=== PATIENT | female | born 1995 | race Two or more races ===

== ENCOUNTER 2020-07-18 22:21 | Emergency (ER) | payer SELFPAY ==
[2020-07-18 22:34] VITALS: BP 118/67; PULSE 80; RESP 18; TEMP 37.1; O2SAT 99; BMI 20.9
--- NOTE | 2020-07-19 00:19 | ED.NAVMDI ---
HPI - Nausea/Vomiting/Diarrhea General Chief complaint: OB Stated complaint: vomiting, abdominal pain, Time Seen by Provider: 07/18/20 23:25 Source: patient Mode of arrival: ambulatory Limitations: no limitations History of Present Illness HPI Narrative: Patient comes to the emergency room complaining of nausea and vomiting. Patient states 10 days ago she found out she was , had 2 positive home tests. Patient also complaining of chronic lower back pain, states it is unrelated to her . It was written on the patient's triage note that the patient complained of rectal pain, patient states she does not have rectal pain at all. Patient denies vaginal fluid or leakage, no abdominal cramping. No dysuria. Patient is a . Patient states her last menstrual period was the week of May. MD elicited complaint: nausea and vomiting Related Data Previous Rx's Medication Instructions Recorded metoclopramide HCl 5 mg PO Q6H PRN #20 tab 07/19/20 nitrofurantoin monohyd/m-cryst 100 mg PO Q12H 7 Days #14 cap 07/19/20 [Macrobid] Allergies Allergy/AdvReac Type Severity Reaction Status Date / Time bupropion [From WELLBUTRIN] Allergy Unknown RASH Unverified 02/07/20 19:39 Review of Systems Review of Systems: Constitutional : No Weight loss, No Fever, No Chills, No Night Sweats, No Fatigue, No Malaise ENT/Mouth : No Hearing loss, No Ear Pain, No Nasal Congestion, No Sinus Pain, No Hoarseness, No sore throat, No Rhinorrhea, No Swallowing Difficulty Eyes: No Eye Pain, No Swelling, No Redness, No Foreign Body, No Discharge, No Vision Changes Cardiovascular : No Chest Pain, No SOB, No Dyspnea on Exertion, No Orthopnea, No Edema, No Palpitations Respiratory : No Cough, No Sputum, No Wheezing, No Smoke Exposure, No Dyspnea Gastrointestinal : Complaining of nausea vomiting, No Diarrhea, No Constipation, No abdominal Pain, No Hematochezia, No Melena Genitourinary : no irregular bleeding, No Dysuria, No Urinary Frequency, No Hematuria, No Urinary Incontinence, No Urgency, No Flank Pain, No Urinary Flow Changes, No Hesitancy Musculoskeletal : Complaining of chronic lumbar pain, No Myalgias, No Joint Swelling Skin : No Skin Lesions, No rash Neuro : No Weakness, No Numbness, No Paresthesias, No Loss of Consciousness, No Dizziness, No Headache Psych : No Anxiety/Panic, No Depression, No SI/HI/AH/VH, No Social Issues, Heme/Lymph: No Bruising, No Bleeding,No Lymphadenopathy Endocrine : No Polyuria, No Polydipsia, No Temperature Intolerance [facility] Social History Social History Advance Directives: No Physical Exam Vital Signs: Vital Signs: Last Vital Signs Temp 97.8 F 07/19/20 00:55 Pulse 65 07/19/20 00:55 Resp 18 07/19/20 00:55 BP 95/50 L 07/19/20 00:55 Pulse Ox 100 07/19/20 00:55 Body Mass Index 20.9 Appearance: Alert. Oriented X3. No acute distress. Eyes: Pupils equal, round and reactive to light. ENT: Pharynx normal. Neck: Normal inspection. Neck supple. No lymph nodes noted. No crepitus CVS: Normal heart rate and rhythm. Pulses normal. Normal S1 and S2 Respiratory: No respiratory distress. Breath sounds normal. No Wheezing. No rales Abdomen: Soft and nontender. No rigidity. No distention. good BS x4 Skin: Skin warm and dry. Normal skin color. Normal skin turgor. Extremities: No lower extremity edema. No lower extremity edema. No Lacerations. No Rash Neuro: Oriented X 3. No motor deficit. No sensory deficit. Moving all extermities. No slurred speech. Course Course Course Narrative: Patient feeling better, has not vomited since she has been in the emergency room. Patient states she is already taking vitamins. MDM - Nausea/Vomiting/Diarrhea Lab Data Result diagrams: 07/19/20 00:47 07/19/20 00:47 Labs: Lab Results 07/19/20 07/19/20 07/19/20 Range/Units 00:47 00:47 00:47 WBC 9.9 (4.8-10.8) X10*3/uL RBC 4.14 L (4.20-5.50) X10*6/uL Hgb 12.7 (12.0-16.0) g/dl Hct 38.2 (37-47) % MCV 92.3 (80-98) fL MCH 30.7 (27.0-33.0) pg MCHC 33.2 (31.0-35.0) g/dl RDW 12.2 (11.0-16.0) % Plt Count 260 (160-400) X10*3/uL MPV 10.5 (9.4-12.3) fL Immature Gran % (Auto) 0.3 (0.0-0.4) % Neut % (Auto) 66.9 (45-73) % Lymph % (Auto) 24.3 (20-40) % Kingfisher % (Auto) 5.7 (2-11) % Eos % (Auto) 2.5 (0-4) % Baso % (Auto) 0.3 (0-2) % Lymph # (Auto) 2.4 (1.2-4.9) X10*3/uL Kingfisher # (Auto) 0.6 (0.1-1.2) X10*3/uL Eos # (Auto) 0.3 (0.0-0.4) X10*3/uL Baso # (Auto) 0.0 (0.0-0.2) X10*3/uL Abs Immat Gran (auto) 0.03 (0.00-0.03) X10*3/uL Absolute Neuts (auto) 6.6 (2.0-8.3) X10*3/uL Absolute Nucleated RBC 0.000 (0.0-0.012) X10*3/uL Nucleated RBC % (auto) 0.0 (0.0-0.2) /100WBC Sodium 137 (135-145) mmol/L Potassium 4.0 (3.3-5.1) mmol/L Chloride 104 (96-108) mmol/L Carbon Dioxide 27 (22-29) mmol/L Anion Gap 10 L (12-20) BUN 12 (9-16) mg/dL Creatinine 0.65 (0.5-1.4) mg/dL Estim Creat Clear Calc 108.5 Estimated GFR > 60 Random Glucose 87 (60-115) mg/dL Calcium 9.3 (8.4-10.2) mg/dL Total Bilirubin 0.2 (0.0-1.0) mg/dL Direct Bilirubin < 0.2 (0.0-0.5) mg/dL AST 12 (5-31) U/L ALT 10 (0-31) U/L Alkaline Phosphatase 67 (39-117) U/L Total Protein 6.7 (6.5-8.0) g/dL Albumin 4.2 (3.5-5.0) g/dL Beta HCG, Quant 293697 mIU/mL Urine Color Urine Appearance Urine pH (5.0-8.0) Ur Specific Bradford (1.005-1.025) Urine Protein (NEG-TRACE) MG/DL Urine Glucose (UA) (NEG) MG/DL Urine Ketones (NEG) MG/DL Urine Blood (NEG) Urine Nitrite (NEG) Ur Leukocyte Esterase (NEG) Urine RBC (0) /HPF Urine WBC (0-4) /HPF Urine WBC Clumps Ur Squamous Epith Cells /LPF Calcium Oxalate Crystal /LPF Urine Bacteria /LPF Urine Mucus /LPF Urine Test (NEGATIVE) Blood Type O Positive 07/19/20 07/19/20 Range/Units 00:47 00:47 WBC (4.8-10.8) X10*3/uL RBC (4.20-5.50) X10*6/uL Hgb (12.0-16.0) g/dl Hct (37-47) % MCV (80-98) fL MCH (27.0-33.0) pg MCHC (31.0-35.0) g/dl RDW (11.0-16.0) % Plt Count (160-400) X10*3/uL MPV (9.4-12.3) fL Immature Gran % (Auto) (0.0-0.4) % Neut % (Auto) (45-73) % Lymph % (Auto) (20-40) % Kingfisher % (Auto) (2-11) % Eos % (Auto) (0-4) % Baso % (Auto) (0-2) % Lymph # (Auto) (1.2-4.9) X10*3/uL Kingfisher # (Auto) (0.1-1.2) X10*3/uL Eos # (Auto) (0.0-0.4) X10*3/uL Baso # (Auto) (0.0-0.2) X10*3/uL Abs Immat Gran (auto) (0.00-0.03) X10*3/uL Absolute Neuts (auto) (2.0-8.3) X10*3/uL Absolute Nucleated RBC (0.0-0.012) X10*3/uL Nucleated RBC % (auto) (0.0-0.2) /100WBC Sodium (135-145) mmol/L Potassium (3.3-5.1) mmol/L Chloride (96-108) mmol/L Carbon Dioxide (22-29) mmol/L Anion Gap (12-20) BUN (9-16) mg/dL Creatinine (0.5-1.4) mg/dL Estim Creat Clear Calc Estimated GFR Random Glucose (60-115) mg/dL Calcium (8.4-10.2) mg/dL Total Bilirubin (0.0-1.0) mg/dL Direct Bilirubin (0.0-0.5) mg/dL AST (5-31) U/L ALT (0-31) U/L Alkaline Phosphatase (39-117) U/L Total Protein (6.5-8.0) g/dL Albumin (3.5-5.0) g/dL Beta HCG, Quant mIU/mL Urine Color YELLOW Urine Appearance CLEAR Urine pH 6.0 (5.0-8.0) Ur Specific Bradford 1.025 (1.005-1.025) Urine Protein NEG (NEG-TRACE) MG/DL Urine Glucose (UA) NEG (NEG) MG/DL Urine Ketones NEG (NEG) MG/DL Urine Blood TRACE (NEG) Urine Nitrite POS H (NEG) Ur Leukocyte Esterase NEG (NEG) Urine RBC 0-2 (0) /HPF Urine WBC 0-2 (0-4) /HPF Urine WBC Clumps NOTED Ur Squamous Epith Cells 1+ /LPF Calcium Oxalate Crystal 1+ /LPF Urine Bacteria 2+ /LPF Urine Mucus 2+ /LPF Urine Test POSITIVE H (NEGATIVE) Blood Type Discharge Plan Discharge Clinical Impression: Nausea and vomiting during UTI (urinary tract infection) Qualifiers: Urinary tract infection type: site unspecified Hematuria presence: without hematuria Qualified Code(s): N39.0 - Urinary tract infection, site not specified Patient Disposition: Home, Self-Care Instructions: Acute Nausea and Vomiting (ED), Urinary Tract Infection in (ED) Additional Instructions: Please follow-up with your primary care physician tomorrow. If you have any worsening or new symptoms, please return to the emergency room or call 911. Please follow-up with your OBGYN, if needed you can call the OBGYN group in [place]. Prescriptions: New nitrofurantoin monohyd/m-cryst [Macrobid] 100 mg capsule 100 mg PO Q12H 7 Days Qty: 14 RF: 0 metoclopramide HCl 5 mg tablet 5 mg PO Q6H PRN (Reason: nausea and vomiting) Qty: 20 RF: 0 Referrals: Osbaldo Dick MD [Physician] - 2 days
[2020-07-19 00:55] VITALS: BP 95/50; PULSE 65; RESP 18; TEMP 36.6; O2SAT 100
[2020-07-19 00:57] LABS: MANUAL DIFF FLAG NO
[2020-07-19 00:58] LABS: Basophils Percent Auto 0.3 % (0-2); Eosinophils Absolute Auto 0.3 X10*3/uL (0.0-0.4); Eosinophils Percent Auto 2.5 % (0-4); Hematocrit 38.2 % (37-47); Hemoglobin 12.7 g/dl (12.0-16.0); Imm Gran Abs Auto 0.03 X10*3/uL (0.00-0.03); Imm Gran Pct Auto 0.3 % (0.0-0.4); Lymphocytes Absolute Auto 2.4 X10*3/uL (1.2-4.9); Lymphocytes Percent Auto 24.3 % (20-40); Mean Corpuscular HGB Conc 33.2 g/dl (31.0-35.0); Mean Corpuscular Hemoglobin 30.7 pg (27.0-33.0); Mean Corpuscular Volume 92.3 fL (80-98); Mean Platelet Volume 10.5 fL (9.4-12.3); Monocytes Absolute Auto 0.6 X10*3/uL (0.1-1.2); Monocytes Percent Auto 5.7 % (2-11); Neutrophils Absolute Auto 6.6 X10*3/uL (2.0-8.3); Neutrophils Percent Auto 66.9 % (45-73); Platelet Count 260 X10*3/uL (160-400); Red Blood Count 4.14 X10*6/uL (4.20-5.50); Red Cell Distribution Width 12.2 % (11.0-16.0); White Blood Count 9.9 X10*3/uL (4.8-10.8)
[2020-07-19] MEDS: Metoclopramide HCl 10 MG/2 ML VIAL IVPUSH (00:58)
[2020-07-19] MEDS: 0.9 % Sodium Chloride 1,000 ML 999 ML IVCONT (00:58)
[2020-07-19 01:11] LABS: Glucose Urine UA NEG (NEG); Leukocyte Esterase Urine NEG (NEG); Nitrite Urine POS (NEG); Specific Gravity - Urine 1.025 (1.005-1.025); UACC Culture Trigger YES; Urine Blood TRACE (NEG); Urine Ketones NEG (NEG); Urine Protein NEG (NEG-TRACE)
[2020-07-19 01:12] LABS: Appearance Urine CLEAR; Color Urine YELLOW
[2020-07-19 01:18] LABS: UPreg QC Valid YES; Urine Pregnancy POSITIVE (NEGATIVE)
[2020-07-19 01:20] LABS: Alanine Aminotransferase 10 U/L (0-31); Albumin Level 4.2 g/dL (3.5-5.0); Alkaline Phosphatase 67 U/L (39-117); Anion Gap 10 (12-20); Aspartate Amino Transferase 12 U/L (5-31); Bilirubin Direct < 0.2 mg/dL (0.0-0.5); Bilirubin Total 0.2 mg/dL (0.0-1.0); Blood Urea Nitrogen 12 mg/dL (9-16); Calcium 9.3 mg/dL (8.4-10.2); Carbon Dioxide 27 mmol/L (22-29); Chloride 104 mmol/L (96-108); Creatinine Clr Calc Pharmacy 108.5; Estimated Glomerular Filt Rate > 60; Glucose Random 87 mg/dL (60-115); Sodium 137 mmol/L (135-145); Total Protein 6.7 g/dL (6.5-8.0)
[2020-07-19 01:45] LABS: Bacteria Urine 2+ /LPF; Calcium Oxalate Crystals Urine 1+ /LPF; Mucus Urine 2+ /LPF; RBC Urine 0-2 /HPF (0); Squamous Epithelial Cell Urine 1+ /LPF; WBC Clumps Urine NOTED; WBC Urine 0-2 /HPF (0-4)
[2020-07-19] MEDS: Nitrofurantoin Monohyd/M-Cryst 100 MG CAPSULE PO (02:02)
== END 2020-07-19 02:14 | disposition home or self-care (01) ==
PROVIDERS: Student in an Organized Health Care Education/Training Program; Emergency Provider Emergency Medicine
DX: O21.9 Vomiting of pregnancy, unspecified (principal); O23.41 Unspecified infection of urinary tract in pregnancy, first trimester; Z3A.00 Weeks of gestation of pregnancy not specified
CPT/HCPCS: 36415; 80048; 80076; 81001; 81003; 81025; 84702; 85025; 86900; 86901; 87086; 96361; 96374; 99284; J2765

== ENCOUNTER 2020-09-07 20:21 | Emergency (ER) | payer OTHER, SELFPAY ==
[2020-09-07 20:26] VITALS: BP 122/65; PULSE 98; RESP 18; TEMP 37.1; O2SAT 100; BMI 21.9
[2020-09-07 21:44] LABS: COVID-19 Test Negative (Negative)
--- NOTE | 2020-09-07 22:09 | PC.NURSE ---
DR ARREDONDO IN TO EVAL PATIENT. PT STATES TUESDAY SYMPTOMS STARTED. C/O NASAL CONGESTION, HEADACHE, EAR PAIN. SORE THROAT GONE. PT TALKING IN FULL SENTES. RESP UNLABORED.
--- NOTE | 2020-09-07 22:16 | ED.GENADULT ---
HPI - General Adult General Chief complaint: General Medical Stated complaint: sob Time Seen by Provider: 09/07/20 22:05 Source: patient Mode of arrival: ambulatory Limitations: no limitations History of Present Illness HPI narrative: Patient comes emergency room complaining of sinus pressure. Patient states she has been having worsening congestion for the last 4 days, patient is known to be 15 weeks . Two days ago she got tested for COVID-19, tested negative. Otherwise patient feeling well. Patient denies coughing, no vomiting or diarrhea. No shortness of breath. Related Data Previous Rx's Medication Instructions Recorded metoclopramide HCl 5 mg PO Q6H PRN #20 tab 07/19/20 nitrofurantoin monohyd/m-cryst 100 mg PO Q12H 7 Days #14 cap 07/19/20 [Macrobid] fluticasone propionate [Flonase 1 spray INTRANASAL BID #16 g 09/07/20 Allergy Relief] Allergies Allergy/AdvReac Type Severity Reaction Status Date / Time bupropion [From WELLBUTRIN] Allergy Unknown RASH Unverified 02/07/20 19:39 Review of Systems Review of Systems: Constitutional : No Weight loss, No Fever, No Chills, No Night Sweats, No Fatigue, No Malaise ENT/Mouth : No Hearing loss, No Ear Pain, complaining of bilateral Nasal Congestion, mild ethmoid Sinus Pain, No Hoarseness, No sore throat, No Rhinorrhea, No Swallowing Difficulty Eyes: No Eye Pain, No Swelling, No Redness, No Foreign Body, No Discharge, No Vision Changes Cardiovascular : No Chest Pain, No SOB, No Dyspnea on Exertion, No Orthopnea, No Edema, No Palpitations Respiratory : No Cough, No Sputum, No Wheezing, No Smoke Exposure, No Dyspnea Gastrointestinal : No Nausea, No Vomiting, No Diarrhea, No Constipation, No abdominal Pain, No Hematochezia, No Melena Genitourinary : no irregular bleeding, No Dysuria, No Urinary Frequency, No Hematuria, No Urinary Incontinence, No Urgency, No Flank Pain, No Urinary Flow Changes, No Hesitancy Musculoskeletal : No joint pain, No Myalgias, No Joint Swelling Skin : No Skin Lesions, No rash Neuro : No Weakness, No Numbness, No Paresthesias, No Loss of Consciousness, No Dizziness, No Headache Psych : No Anxiety/Panic, No Depression, No SI/HI/AH/VH, No Social Issues, Heme/Lymph: No Bruising, No Bleeding,No Lymphadenopathy Endocrine : No Polyuria, No Polydipsia, No Temperature Intolerance [facility] Social History Social History Advance Directives: No Advance Directives Information Provided: No Physical Exam Vital Signs: Vital Signs: Last Vital Signs Temp 98.8 F 09/07/20 20:26 Pulse 98 09/07/20 20:26 Resp 18 09/07/20 20:26 BP 122/65 09/07/20 20:26 Pulse Ox 100 09/07/20 20:26 Body Mass Index 21.9 Appearance: Alert. Oriented X3. No acute distress. Eyes: Pupils equal, round and reactive to light. ENT: Pharynx normal. Pain to palpation over the ethmoid sinus Neck: Normal inspection. Neck supple. No lymph nodes noted. No crepitus CVS: Normal heart rate and rhythm. Pulses normal. Normal S1 and S2 Respiratory: No respiratory distress. Breath sounds normal. No Wheezing. No rales Abdomen: Soft and nontender. No rigidity. No distention. good BS x4, gravid uterus, heart rate 140 Skin: Skin warm and dry. Normal skin color. Normal skin turgor. Extremities: No lower extremity edema. No lower extremity edema. No Lacerations. No Rash Neuro: Oriented X 3. No motor deficit. No sensory deficit. Moving all extermities. No slurred speech. Course Course Course Narrative: I discussed with the patient that we are very limited on medication that we can give her for her symptoms. At this time antibiotic is not indicated. Patient will try Flonase Medical Decision Making Lab Data Labs: Lab Results 09/07/20 Range/Units 21:24 COVID-19 ([facility]) Negative (Negative) COVID-19 Clin Com See Note Discharge Plan Discharge Clinical Impression: Sinusitis Qualifiers: Sinusitis location: ethmoidal Chronicity: acute Recurrence: non-recurrent Qualified Code(s): J01.20 - Acute ethmoidal sinusitis, unspecified Patient Disposition: Home, Self-Care Instructions: Sinusitis (ED) Additional Instructions: Please follow-up with your primary care physician tomorrow. If you have any worsening or new symptoms, please return to the emergency room or call 911 Prescriptions: New fluticasone propionate [Flonase Allergy Relief] 50 mcg/actuation spray,suspension 1 spray intranasal BID Qty: 16 RF: 0 No Action nitrofurantoin monohyd/m-cryst [Macrobid] 100 mg capsule 100 mg PO Q12H 7 Days Qty: 14 RF: 0 metoclopramide HCl 5 mg tablet 5 mg PO Q6H PRN (Reason: nausea and vomiting) Qty: 20 RF: 0
== END 2020-09-07 22:41 | disposition home or self-care (01) ==
PROVIDERS: Emergency Provider Emergency Medicine
DX: O26.92 Pregnancy related conditions, unspecified, second trimester (principal); J01.20 Acute ethmoidal sinusitis, unspecified; R06.02 Shortness of breath; Z3A.15 15 weeks gestation of pregnancy; Z79.899 Other long term (current) drug therapy; Z20.822 Contact with and (suspected) exposure to COVID-19
CPT/HCPCS: 36415; 87635; 99283

== ENCOUNTER 2021-01-07 10:23 | Emergency (ER) | payer OTHER, SELFPAY ==
[2021-01-07 10:35] VITALS: BP 108/71; PULSE 80; RESP 19; TEMP 36.6; O2SAT 98; BMI 25.8
--- NOTE | 2021-01-07 10:48 | ED.FALL ---
HPI - Fall General Chief Complaint: Fall Stated Complaint: fall Time Seen by Provider: 01/07/21 10:31 Source: patient and family ( at bedside ) Mode of arrival: ambulatory Limitations: no limitations History of Present Illness HPI Narrative: 25-year-old female who is currently 32 [facility] after she had a mechanical fall where she tripped over some ropes that were at the bottom of the stairs where she resides due to the stairs were being remodeled. She reports that she flew over the ropes approximately 3 steps and fell into the cement sidewalk near the parking lot. She reports that she landed on her bilateral knees and abdomen. She reports that she is feeling movement. She is complaining of only bilateral knee, left great toe and mid to right lower back pain otherwise denies any other pain. Denies head injury or loss of consciousness. Denies being on any blood thinners. MD complaint: fall Onset (ago): minute(s) (Prior to arrival) Fall from: standing Fall witnessed: no Place fall occurred: home Loss of consciousness: none Prolonged down time: no Symptoms prior to fall: none Context: tripped/slipped Location of injury: abdomen Location of injury - extremities: bilateral: knee Severity: moderate Quality: aching Associated symptoms (after fall): other (Patient only reports pain to bilateral knees, left great toe pain and mid to right lower back pain) Related Data Previous Rx's Medication Instructions Recorded metoclopramide HCl 5 mg tablet 5 mg PO Q6H PRN #20 tab 07/19/20 nitrofurantoin 100 mg PO Q12H 7 Days #14 cap 07/19/20 monohydrate/macrocrystals 100 mg capsule (Macrobid) fluticasone propionate 50 1 spray INTRANASAL BID #16 g 09/07/20 mcg/actuation nasal spray,suspension (Flonase Allergy Relief) Allergies Allergy/AdvReac Type Severity Reaction Status Date / Time bupropion [From WELLBUTRIN] Allergy Unknown RASH Unverified 02/07/20 19:39 Review of Systems Review of Systems: Constitutional : No changes in activity, No lethargy ENT/Mouth : No Ear Pain, No Nasal discharge/drainage Eyes: No Eye Pain, No Swelling, No Redness, No Foreign Body, No Vision Changes Cardiovascular : No Chest Pain, No SOB Respiratory : No Cough Gastrointestinal : No Nausea, No Vomiting, No abdominal Pain Genitourinary : No Dysuria, No Urinary Frequency, No Urinary Incontinence, No Urgency, No Flank Pain Musculoskeletal : Positive joint pain to b/l knee's, Positive left Great toe pain, Positive back pain, , No neck stiffness/pain/injury Skin : No lacerations Neuro : No unsteady gait, No Paresthesias, No Loss of Consciousness, No altered mental status, No Headache Yes all other systems are reviewed and are negative [facility] Past Medical History Attestation statement: The following information was validated with the patient. Medical History Healthy adult Social History Social History Advance Directives: No Advance Directives Information Provided: No Patient : Yes Physical Exam Vital Signs: Vital Signs: Last Vital Signs Temp 98.3 F 01/07/21 12:00 Pulse 80 01/07/21 12:00 Resp 15 01/07/21 12:00 BP 96/61 01/07/21 12:00 Pulse Ox 98 01/07/21 12:00 Body Mass Index 25.8 vital signs have been reviewed as normal and appeared to be correct. Blood pressure normal. Heart rate normal. Respiration rate normal. Temperature normal. Oxygen saturation normal. Appearance: Alert. Oriented X3. No acute distress. Head: Normal external exam. Normocephalic. Eyes: PERRLA. EOMI. Conjunctiva and sclera normal. Eyelids normal. ENT: Pharynx normal. Uvula midline. Moist mucous membranes. No trismus noted. No drooling noted. No muffled voice noted. Neck: Normal inspection. Neck supple. FROM. No adenopathy. No meningeal signs. Patient is neuro intact bilaterally and this in all 4 extremities. Reflexes intact bilateral distant all 4 extremities. No rashes/lesion/induration/fluctuance/signs infection/abrasion/ecchymosis/lacerations noted. No signs of trauma. CVS: Normal heart rate and rhythm. Heart sound normal. No murmurs noted. Pulses normal throughout. Respiratory: No respiratory distress. Painless inspiration. Breath sounds normal. No wheezes/rales/rhonchi noted. Chest nontender. No accessory muscle usage noted or decreased air movement noted. Abdomen: Soft and nontender. Gravid uterus. heart tones at 130. Normal movement noted on my exam. No guarding noted. No rigidity. Bowel sounds normal in all 4 quadrants. No distention noted. No organomegaly noted. No visible injury noted. No rebound tenderness. Negative Rovsing sign. Negative obturator's sign. Negative psoas sign. Negative Montejo sign. Back: No CVA tenderness. Full range of motion noted. No signs of trauma. Patient neuro intact bilaterally this and all 4 extremities. Reflexes intact bilateral and this an all 4 extremities. Negative straight leg raise bilaterally. No rashes/lesion/induration/fluctuance/signs of infection/abrasion/ecchymosis/lacerations noted. Skin: Skin warm and dry. Normal skin color. Normal skin turgor. Patient noted to have superficial abrasions to bilateral knees and left great toe. No active bleeding or signs of infection or foreign bodies noted. No rashes/lesions/lacerations noted. Extremities: Patient has tenderness palpation to bilateral knees although patient has full range of motion no ligamentous laxity is noted. No obvious deformities noted to bilateral knees. Patient noted to have tenderness to palpation to left great toe with a superficial abrasion. No active bleeding/foreign bodies or signs of infection noted. Otherwise all other Extremities exhibit normal range of motion and nontender. Neuro: Oriented X 3. No motor deficit. No sensory deficit. Reflexes normal. Normal steady gait. Course Course Course Narrative: 10:45am - 25-year-old female who is currently 32 weeks being followed by [facility] presenting to the ED after she had a mechanical fall where she tripped over some ropes that were at the bottom of the stairs where she resides due to the stairs were being remodeled. She reports that she flew over the ropes approximately 3 steps and fell into the cement sidewalk near the parking lot. She reports that she landed on her bilateral knees and abdomen. She reports that she is feeling movement. She is complaining of only bilateral knee, left great toe and mid to right lower back pain otherwise denies any other pain. Denies head injury or loss of consciousness. Denies being on any blood thinners. - On exam patient is alert oriented x3. No signs of trauma to the head or the face. Patient has full range of motion of cervical spine and she does not have any midcervical tenderness step-offs or deformities. No signs of trauma to the neck/cervical spine. No signs of trauma to the chest. Abdomen is soft and nontender. She has normal heart tones at 132. She has normal movement on exam. Gravid uterus consistent with dates. No signs of trauma to the abdomen. Patient noted to have bilateral knee pain with superficial abrasions although no ligamentous laxity is noted and no signs of infection or active bleeding. Patient has full range of motion of bilateral knees. She has mild tenderness palpation to lumbar spine and right para lumbar aspect. No signs of trauma. Patient neuro intact bilateral and this an all 4 extremities. Reflexes intact bilateral distant all 4 extremities. Patient with mild tenderness palpation to left great toe with superficial abrasion. Otherwise no other signs of trauma. Plan: Therefore at this time will cleans the patient's abrasions apply bacitracin and clean dressings. Provide 975 mg of Tylenol. Also consulting with [facility] for possible transfer due to patient receives care there if not will transfer to [facility] or another facility. Patient understands agrees with this plan. Reevaluation(s) Reevaluation #1: - I consulted with OBGYN Dr. Bourne at [facility] and they will be accepting this patient at this time patient will be transported via EMS. Patient at bedside understand and agree with this plan. Time: 11:04 [facility] - Fall Medical Records Attestation: I reviewed the patient's medical records. Lab Data Attestation: I reviewed the patient's lab results. Critical Care Time Critical Care Time Critical Care Time: Yes Total Critical Care Time: 60 Attestation: I personally attest to this time spent taking care of the patient Discharge Plan Discharge Clinical Impression: Fall, 32 weeks gestation of , Abdominal trauma, Bilateral knee pain, Pain of left great toe, Abrasion, Back pain Patient Disposition: [facility] Prescriptions: No Action nitrofurantoin monohyd/m-cryst [Macrobid] 100 mg capsule 100 mg PO Q12H 7 Days Qty: 14 RF: 0 metoclopramide HCl 5 mg tablet 5 mg PO Q6H PRN (Reason: nausea and vomiting) Qty: 20 RF: 0 fluticasone propionate [Flonase Allergy Relief] 50 mcg/actuation spray,suspension 1 spray intranasal BID Qty: 16 RF: 0
[2021-01-07] MEDS: Acetaminophen 325 MG TABLET 975 MG PO (11:08)
--- NOTE | 2021-01-07 11:41 | PC.NURSE ---
report to [facility]
[2021-01-07 12:00] VITALS: BP 96/61; PULSE 80; RESP 15; TEMP 36.8; O2SAT 98
== END 2021-01-07 18:30 | disposition short-term general hospital (02) ==
PROVIDERS: Emergency Provider Emergency Medicine
DX: O26.93 Pregnancy related conditions, unspecified, third trimester (principal); M25.562 Pain in left knee; M25.561 Pain in right knee; M54.5 Low back pain; M79.672 Pain in left foot; Z3A.32 32 weeks gestation of pregnancy; Z79.899 Other long term (current) drug therapy
CPT/HCPCS: 99285; 99291

== ENCOUNTER 2021-02-18 11:43 | Outpatient (REF) | payer OTHER, SELFPAY | END 2021-02-18 11:44 | disposition home or self-care (01) | LOC: HO.LAB 11:43 | PROVIDERS: PCP Internal Medicine; Visit Provider Internal Medicine | DX: Z20.822 Contact with and (suspected) exposure to COVID-19 (principal) | CPT/HCPCS: C9803; U0003; U0005 ==

== ENCOUNTER 2021-08-05 10:27 | Outpatient (REF) | payer OTHER, SELFPAY ==
[2021-08-05 12:16] LABS: Anion Gap 11 (12-20); Blood Urea Nitrogen 14 mg/dL (9-16); C Reactive Protein 0.03 mg/dL (< or = 0.50); Calcium 9.4 mg/dL (8.4-10.2); Carbon Dioxide 26 mmol/L (22-29); Chloride 105 mmol/L (96-108); Estimated Glomerular Filt Rate > 60; Glucose Random 88 mg/dL (60-115); Potassium 4.1 mmol/L (3.3-5.1); Rheumatoid Factor < 15.0 IU/mL (<15.0); Sodium 138 mmol/L (135-145); Uric Acid 3.6 mg/dL (2.4-5.7)
[2021-08-05 12:22] LABS: Erythrocyte Sedimentation Rate 2 MM/HR (0-20)
[2021-08-05 13:17] LABS: Vitamin B12 197 pg/mL (200-900)
[2021-08-06 08:21] LABS: Lyme Abs Screen <0.90 index
[2021-08-06 14:35] LABS: Anti Nuclear Antibody Screen NEGATIVE (NEGATIVE)
[2021-08-07 11:09] LABS: Anti Nuclear Antibody Titer TTNP
[2021-08-11 13:22] LABS: VITAMIN D (1,25 OH) D3 <8 pg/mL; Vit D (1,25-Dihydroxy) Total 33 pg/mL (18-72); Vitamin D (1,25 OH) D2 33 pg/mL
[2021-08-12 12:41] LABS: Vitamin B1 17 nmol/L (8-30)
== END 2021-08-05 10:28 | disposition home or self-care (01) ==
LOC: HO.LAB 10:27
PROVIDERS: PCP Internal Medicine; Visit Provider Psychiatry & Neurology Neurology
DX: M79.7 Fibromyalgia (principal)
CPT/HCPCS: 36415; 80048; 82550; 82607; 82652; 84425; 84550; 85652; 86038; 86039; 86140; 86431; 86617; 86618